=== PATIENT | female | born 1940 | race African-American/Black ===

== ENCOUNTER 2024-09-04 14:39 | Emergency (ER) | payer BC, MEDICARE ==
[~2024-09-04] VITALS: Ht 157.5 cm; Wt 100.0 kg
[2024-09-04 14:59] VITALS: O2SAT 99
[2024-09-04 16:35] LABS: HEMATOCRIT. 31.6 % (36.0-48.0); HEMOGLOBIN. 9.7 g/dL (12.0-16.0); MEAN CORPUSCULAR HGB CONC 30.8 g/dL (31.0-37.0); MEAN CORPUSCULAR VOLUME 84.3 fL (81.0-99.0); MEAN PLATELET VOLUME 9.5 fl (7.4-10.4); PLATELET 185 x1000/uL (130-400); RED BLOOD CELL COUNT 3.75 mill/uL (4.2-5.4); RED CELL DISTRIBUTION WIDTH 18.6 % (11.6-14.6); WHITE BLOOD COUNT 6.3 x1000/uL (4.5-11.0)
[2024-09-04 16:41] LABS: DIFFERENTIAL COMMENT 1
[2024-09-04 16:44] LABS: CHLORIDE 104 mEq/L (98-107); POTASSIUM 4.3 mEq/L (3.5-5.1); SODIUM 140 mEq/L (136-145)
[2024-09-04 16:45] LABS: CARBON DIOXIDE 27 mEq/L (21-32); INR 1.2; PROTHROMBIN TIME 13.7 sec (9.6-11.0)
[2024-09-04 16:50] LABS: CREATININE 2.8 mg/dL (0.6-1.0); GLUCOSE 83 mg/dL (70-105); UREA NITROGEN BLOOD 59 mg/dL (9-23)
[2024-09-04 16:54] LABS: ETHANOL BLOOD < 10 mg/dL (<10); TROPONIN I HIGH SENSITIVITY 43 ng/L (3.0-34)
[2024-09-04 17:02] LABS: ANISOCYTOSIS 1+; PLATELET ESTIMATE NORMAL
[2024-09-04 17:58] LABS: CLARITY URINE CLEAR (CLEAR); COLOR URINE YELLOW (YELLOW); GLUCOSE URINE NEGATIVE (NEGATIVE); KETONES URINE NEGATIVE (NEGATIVE); LEUKOCYTE ESTERASE URINE NEGATIVE (NEGATIVE); NITRITE URINE NEGATIVE (NEGATIVE); OCCULT BLOOD URINE NEGATIVE (NEGATIVE); PROTEIN URINE TRACE (NEGATIVE); SPECIFIC GRAVITY URINE 1.007 (1.005-1.030); UROBILINOGEN URINE 0.2 E.U./dL (0.2-1.0)
[2024-09-04 18:11] LABS: BACTERIA URINE NONE SEEN; RBC URINE NONE SEEN /hpf (0-2); SQUAMOUS EPITHELIAL CELL URINE RARE /lpf (RARE/1+); WBC URINE 0-2 /hpf (0-2)
[2024-09-04] MEDS: HYDRALAZINE 20MG/ML VIAL IV ONE (18:45)
[2024-09-04 19:28] LABS: *AMPHETAMINES SCREEN URINE NEGATIVE (NEGATIVE); *BARBITURATES SCREEN URINE NEGATIVE (NEGATIVE); *BENZODIAZEPINES SCREEN URINE NEGATIVE (NEGATIVE); *COCAINE SCREEN URINE NEGATIVE (NEGATIVE); CANNABINOID URINE SCREEN NEGATIVE (NEGATIVE); METHADONE URINE SCREEN NEGATIVE (NEGATIVE); OPIATES URINE SCREEN NEGATIVE (NEGATIVE); PHENCYCLIDINE URINE SCREEN NEGATIVE (NEGATIVE)
[2024-09-04 19:29] LABS: ECSTASY MDMA SCREEN URINE NEGATIVE (NEGATIVE)
[2024-09-04 21:35] VITALS: BP 167/68; PULSE 65; RESP 16; TEMP 36.89184; O2SAT 98
== END 2024-09-04 21:51 | disposition short-term general hospital (02) ==
LOC: ER 14:41 → EDBEDREQ 19:59 → ER 21:51
DX: I63.9 Cerebral infarction, unspecified (principal); I11.0 Hypertensive heart disease with heart failure; I50.9 Heart failure, unspecified; Z20.822 Contact with and (suspected) exposure to COVID-19; Z88.0 Allergy status to penicillin; Z88.6 Allergy status to analgesic agent
CPT/HCPCS: 80305; 80048; 81003; 80320; 83605; 85025; 85610; 87040; 84484; 36415; 71045; 70450; 93005; 96374; 99291; 87426; J0360; G0480